=== PATIENT | male | born 1965 | race Caucasian/White ===

== ENCOUNTER 2016-08-31 08:04 | Emergency (ER) | payer OTHER ==
[~2016-08-31 08:04] MED LIST: CELEBREX50 MG PO; CLEOCIN HCL300 M1 PO; IBUPROFEN800 MG PO; KEFLEX PO; LOPRESSOR PO; NO MEDICATIONS; NORCO1 TAB 10/3 PO; TOBRADEX EYE DRO5 ML OU
== END 2016-08-31 08:39 | disposition home or self-care (01) ==
LOC: SED 08:04
DX: K04.7 Periapical abscess without sinus (principal); I10 Essential (primary) hypertension; F17.210 Nicotine dependence, cigarettes, uncomplicated
CPT/HCPCS: 99282